=== PATIENT | male | born 1945 | race Caucasian/White ===

== ENCOUNTER 2017-01-12 18:44 | Inpatient (IN) | payer OTHER, BC ==
[~2017-01-12] VITALS: Ht 188 cm; Wt 90.9 kg
[~2017-01-12 18:44] MED LIST: ALLOPURINOL300 MG PO; AMBIEN10 MG PO; AMLODIPINE BESYL5 MG PO; ASCORBIC ACID500 MG PO; ASPIR 8181 M1 PO; ASPIR-LOW81 MG PO; ATORVASTATIN CA40 MG PO; AUGMENTIN875 MG PO; BUPROPION HCL150 M2 PO; CARVEDILOL12.5 MG PO; CARVEDILOL25 MG PO; CEFTAZIDIM2 GM/50 ML IV; CEPHALEXIN500 M1 PO; COLACE100 MG PO; COREG12.5 M1 PO; Carvedilol PO; DEXTROSE IV; DILAUDID2 MG PO; DOCUSATE SODIU100 MG PO; DULCOLAX10 MG PR; DUONEB 2.5-0.5 M3 ML AEROSOL; DURAGESIC75 MCG TD; FAMOTIDINE20 MG PO; FENTANYL1 EAC1 TD; FENTANYL1 EAC3 TD; FENTANYL1 EAC5 TD; FIBER TABS625 MG PO; FIBER THERAPY625 MG PO; FIBERCON625 MG PO; FLEET ENEMA-AD118 ML PR; FLOMAX0.4 MG PO; FLORASTOR250 MG PO; GLUCAGON1 MG IM; GLUCOSAMINE/1 TABLET PO; HEPARIN SO5000 UNITS SC; HUMALOG100 UNIT/1 SC; HYDROCODON-ACE1 EAC7 PO; IRON325 MG PO; LANTUS 10100 UNITS/ SC; LANTUS 3 M100 UNITS1 SC; LEVAQUIN500 MG PO; LEVEMIR FL100 UNIT/1 SC; LIDOCAINE700 MG TD; LIDODERM 5% P1 PATCH TD; LIPITOR20 MG PO; LIPITOR80 MG PO; LISINOPRIL10 MG PO; LISINOPRIL2.5 MG PO; LISINOPRIL40 MG PO; LYRICA300 MG PO; LYRICA75 MG PO; MILK OF MAGN PO; MIRALAX17 GM PO; MORPHINE SULFAT15 M1 PO; MORPHINE SULFAT15 MG PO; MULTIVITAMIN1 EAC2 PO; MYSOLINE50 MG PO; NORVASC5 MG PO; NOVOLOG PE100 UNITS/ SC; NOVOLOG100 UNIT/1 SC; PANTOPRAZOLE SO20 MG PO; PAROXETINE HCL10 MG PO; PENTASA500 MG PO; PEPCID AC20 MG PO; PEPCID20 MG PO; PERCOCET 10/1 TABLET PO; PLAVIX75 MG PO; PRIMIDONE50 MG PO; PRINIVIL5 MG PO; PROAMATINE5 MG PO; PROTONIX40 MG PO; ROCEPHIN1 GM/50 ML IV; SENNA-TIME S T1 EACH PO; SPIRONOLACTONE25 MG PO; Spironolactone PO; TAMSULOSIN HCL0.4 MG PO; THERAGRAN1 TABLET PO; TRAMADOL HCL50 MG PO; TYLENOL EXTRA500 MG PO; TYLENOL REGULA325 MG PO; VANCOMYCIN HCL1 GM IV; VANCOMYCIN IV; VANCOMYCIN1 GM/150 M IV; VIIBRYD40 MG PO; VITAMIN D400 UNIT PO; ZEASORB POWDE70.9 GM TP; ZESTRIL2.5 MG PO; ZOFRAN4 MG PO; ZOSYN 3.3753.375 GM IV; ZYLOPRIM300 MG PO
[2017-01-12] MEDS ORDERED: PAXIL20 MG PO (20:13)
[2017-01-12 20:14] LABS: EOSINOPHIL (%) 1.3 % (0-5); EOSINOPHIL COUNT 0.2 K/uL (0-0.3); HEMATOCRIT 36.2 % (38.0-50.0); IMMATURE GRANULOCYTE (%) 0.1 % (0.0-0.7); IMMATURE GRANULOCYTE COUNT 0.2 K/uL; LYMPHOCYTE COUNT 1.4 K/uL (1.0-2.8); MCH 27.4 PG (29.0-34.0); MCHC 33.1 G/DL (30.0-36.0); MCV 82.6 FL (86-99); MEAN PLAT.VOLUME 10.4 uM^3 (9.0-12.4); MONOCYTE (%) 6.8 % (3-12); MONOCYTE COUNT 0.9 K/uL (0-0.8); NEUTROPHIL (%) 81.2 % (45-76); NEUTROPHIL COUNT 10.9 K/uL (1.8-6.4); PLATELET COUNT 272 K/uL (156-360); RBC DIS.WIDTH-CV 14.1 % (11.8-14.6); RBC DIS.WIDTH-SD 40.9 % (39-53); RED BLOOD COUNT 4.38 M/uL (4.00-5.50); WHITE BLOOD COUNT 13.4 K/uL (4.1-10.2)
[2017-01-12] MEDS ORDERED: CLOTRIMAZOLE15 GM TP (20:14)
[2017-01-12] MEDS ORDERED: ZOFRAN ODT8 MG PO (20:18)
[2017-01-12] MEDS ORDERED: DILAUDID2 MG PO ×2 (20:18→20:19)
[2017-01-12] MEDS ORDERED: AMBIEN5 MG PO (20:19)
[2017-01-12] MEDS ORDERED: CATAPRES0.2 MG PO (20:20)
[2017-01-12] MEDS ORDERED: ACETAMINOPHEN325 M3 PO (20:21)
[2017-01-12] MEDS ORDERED: MIRALAX255 GM PO (20:25)
[2017-01-12] MEDS ORDERED: COLACE CLEAR50 MG PO (20:26)
[2017-01-12 20:27] LABS: CHLORIDE 104 mEq/L (99-109); POTASSIUM 4.7 mEq/L (3.7-5.4); SODIUM 137 mEq/L (136-147)
[2017-01-12] MEDS ORDERED: ARTIFICIAL TEAR15 M6 BOTH EYES ×2 (20:27→20:29)
[2017-01-12 20:29] LABS: GLUCOSE 133 mg/dL (70-99)
[2017-01-12] MEDS ORDERED: REMERON30 M2 PO (20:29)
[2017-01-12] MEDS ORDERED: FIBER TABS625 MG PO (20:29)
[2017-01-12 20:30] LABS: ANION GAP 9 MEQ/L (2-14)
[2017-01-12] MEDS ORDERED: LANTUS 10100 UNITS/ SC (20:30)
[2017-01-12 20:31] LABS: TOTAL BILIRUBIN 0.6 mg/dL (0.0-1.0)
[2017-01-12 20:32] LABS: ALKALINE PHOSPHATASE 295 IU/L (3-129)
[2017-01-12] MEDS ORDERED: NOVOLOG PE100 UNITS/ SC (20:32)
[2017-01-12 20:33] LABS: GFR ESTIMATE (CALCULATED) > 59 mL/min/
[2017-01-12 20:34] LABS: UREA NITROGEN (BUN) 31 mg/dL (9-23)
[2017-01-12 21:48] LABS: ADD MIUA? YES; BILIRUBIN NEGATIVE; BLOOD NEGATIVE; COLOR YELLOW ((YELLOW)); GLUCOSE (STRIP) NEGATIVE; KETONES 20; LEUKOCYTES NEGATIVE; NITRITE NEGATIVE; PROTEIN (STRIP) NEGATIVE; SPECIFIC GRAVITY 1.027 (1.000-1.030); UROBILINOGEN 0.2 MG/DL (0.2-1.0)
[2017-01-12 21:55] LABS: BACTERIA NONE SEEN /HPF; EPITHELIAL CELLS RARE /HPF; MUCUS TRACE /LPF; RED BLOOD CELLS 0-5 /HPF (0-5); UCUL ADDED? NO; WHITE BLOOD CELLS 0-5 /HPF (0-5)
[2017-01-13 00:38] VITALS: BP 189/86
[2017-01-13 01:57] LABS: INTERNAL CONTROL VALID? YES
[2017-01-13 02:11] LABS: C DIFF TOXIN NEGATIVE (NEGATIVE)
[2017-01-13 02:13] LABS: PROBE CHECK PASS; SPECIMEN PROCESSING CONTROL PASS
[2017-01-13 02:19] LABS: METH RESISTANT S AUREUS PCR POSITIVE (NEGATIVE)
[2017-01-13 02:24] LABS: PROBE CHECK PASS
[2017-01-13 02:37] LABS: C-REACTIVE PROTEIN 41.5 MG/L (0-10)
[2017-01-13 05:16] VITALS: BP 181/78
[2017-01-13 06:45] LABS: HEMATOCRIT 33.8 % (38.0-50.0); MCV 83.7 FL (86-99)
[2017-01-13 06:46] LABS: EOSINOPHIL (%) 0.7 % (0-5); EOSINOPHIL COUNT 0.1 K/uL (0-0.3); HEMATOCRIT 35.2 % (38.0-50.0); IMMATURE GRANULOCYTE (%) 0.3 % (0.0-0.7); LYMPHOCYTE COUNT 1.2 K/uL (1.0-2.8); MCHC 32.4 G/DL (30.0-36.0); MCV 83.4 FL (86-99); MEAN PLAT.VOLUME 10.4 uM^3 (9.0-12.4); MONOCYTE (%) 8.7 % (3-12); MONOCYTE COUNT 1.1 K/uL (0-0.8); NEUTROPHIL (%) 80.5 % (45-76); NEUTROPHIL COUNT 10.4 K/uL (1.8-6.4); PLATELET COUNT 212 K/uL (156-360); RBC DIS.WIDTH-CV 14.3 % (11.8-14.6); RBC DIS.WIDTH-SD 43.2 % (39-53); RED BLOOD COUNT 4.22 M/uL (4.00-5.50); WHITE BLOOD COUNT 12.9 K/uL (4.1-10.2)
[2017-01-13 07:13] LABS: ANION GAP 9 MEQ/L (2-14); CHLORIDE 103 MEQ/L (99-109); POTASSIUM 4.2 MEQ/L (3.7-5.4); SAMPLE HEMOLYSIS CHECK 0; SAMPLE ICTERIC CHECK 0; SAMPLE LIPEMIA CHECK 0; SODIUM 137 MEQ/L (136-147)
[2017-01-13 07:19] LABS: GFR ESTIMATE (CALCULATED) > 59 mL/min/; GLUCOSE 188 mg/dL (70-99); UREA NITROGEN (BUN) 26 mg/dL (9-23)
[2017-01-13 11:46] LABS: HEMATOCRIT 36.3 % (38.0-50.0); MCV 83.3 FL (86-99)
[2017-01-13 12:31] VITALS: BP 164/70
[2017-01-13 15:42] VITALS: BP 160/64
[2017-01-13 17:05] LABS: HEMATOCRIT 35.5 % (38.0-50.0); MCV 83.5 FL (86-99)
[2017-01-13 20:00] VITALS: BP 145/80
[2017-01-13 23:35] LABS: HEMATOCRIT 37.1 % (38.0-50.0); MCV 81.7 FL (86-99)
[2017-01-14] VITALS: BP 139/79
[2017-01-14 03:52] VITALS: BP 164/72
[2017-01-14 07:36] VITALS: BP 168/92
[2017-01-14 10:36] LABS: HEMATOCRIT 34.8 % (38.0-50.0); MCH 26.4 PG (29.0-34.0); MCHC 31.9 G/DL (30.0-36.0); MCV 82.9 FL (86-99); MEAN PLAT.VOLUME 10.5 uM^3 (9.0-12.4); PLATELET COUNT 216 K/uL (156-360); RBC DIS.WIDTH-CV 14.3 % (11.8-14.6); RBC DIS.WIDTH-SD 43.1 % (39-53); WHITE BLOOD COUNT 13.6 K/uL (4.1-10.2)
[2017-01-14 11:00] LABS: ANION GAP 7 MEQ/L (2-14); CHLORIDE 106 MEQ/L (99-109); GFR ESTIMATE (CALCULATED) > 59 mL/min/; GLUCOSE 196 mg/dL (70-99); POTASSIUM 3.9 MEQ/L (3.7-5.4); SAMPLE HEMOLYSIS CHECK 0; SAMPLE ICTERIC CHECK 0; SAMPLE LIPEMIA CHECK 0; SODIUM 139 MEQ/L (136-147); UREA NITROGEN (BUN) 22 mg/dL (9-23)
[2017-01-14 11:08] VITALS: BP 158/86
[2017-01-14 15:45] VITALS: BP 157/82
[2017-01-14 20:42] VITALS: BP 134/80
[2017-01-15] VITALS (7 sets, daily range): BP systolic 112–169; BP diastolic 56–74
[2017-01-15 09:04] LABS: ANION GAP 7 MEQ/L (2-14); CHLORIDE 108 MEQ/L (99-109); GFR ESTIMATE (CALCULATED) > 59 mL/min/; GLUCOSE 134 mg/dL (70-99); POTASSIUM 3.7 MEQ/L (3.7-5.4); SAMPLE HEMOLYSIS CHECK 0; SAMPLE ICTERIC CHECK 0; SAMPLE LIPEMIA CHECK 0; SODIUM 141 MEQ/L (136-147); UREA NITROGEN (BUN) 14 mg/dL (9-23)
[2017-01-15 09:13] LABS: HEMATOCRIT 33.7 % (38.0-50.0); MCH 27.4 PG (29.0-34.0); MCHC 32.6 G/DL (30.0-36.0); MEAN PLAT.VOLUME 10.7 uM^3 (9.0-12.4); PLATELET COUNT 178 K/uL (156-360); RBC DIS.WIDTH-CV 14.1 % (11.8-14.6); RBC DIS.WIDTH-SD 43.2 % (39-53); RED BLOOD COUNT 4.01 M/uL (4.00-5.50)
[2017-01-15 09:27] LABS: WHITE BLOOD COUNT 8.4 K/uL (4.1-10.2)
[2017-01-16 04:29] VITALS: BP 160/65
[2017-01-16 08:36] VITALS: BP 148/72
[2017-01-16 12:39] VITALS: BP 110/50
[2017-01-16] MEDS ORDERED: METRONIDAZOLE500 MG PO (14:24)
== END 2017-01-16 15:51 | disposition home or self-care (01) | DRG 378 ==
LOC: EME → EDBD 18:44 → 5WEST 23:02 → EDOF 23:02 → 5WEST 01-13 00:13 → 5SOUTH 01-13 10:44 → 5WEST 01-13 10:44 → 5SOUTH 01-13 10:44
PROVIDERS: Emergency Medicine; Hospitalist; Nurse Practitioner Family
DX: K62.5 Hemorrhage of anus and rectum (principal); A09 Infectious gastroenteritis and colitis, unspecified; I48.0 Paroxysmal atrial fibrillation; G47.33 Obstructive sleep apnea (adult) (pediatric); I11.9 Hypertensive heart disease without heart failure; I25.10 Atherosclerotic heart disease of native coronary artery without angina pectoris; Z95.5 Presence of coronary angioplasty implant and graft; Z79.4 Long term (current) use of insulin; E78.5 Hyperlipidemia, unspecified; Z95.0 Presence of cardiac pacemaker; I25.2 Old myocardial infarction; G89.29 Other chronic pain; M54.9 Dorsalgia, unspecified; E11.42 Type 2 diabetes mellitus with diabetic polyneuropathy; M10.9 Gout, unspecified; R29.6 Repeated falls; Z87.891 Personal history of nicotine dependence; K57.90 Diverticulosis of intestine, part unspecified, without perforation or abscess without bleeding; I73.9 Peripheral vascular disease, unspecified; Z22.322 Carrier or suspected carrier of Methicillin resistant Staphylococcus aureus
CPT/HCPCS: 74177; 80048; 80053; 81003; 82272; 83605; 85014; 85018; 85025; 85027; 86140; 86850; 86900; 86901; 87040; 87177; 87493; 87641; 94799; 99281; 99285; C9113; G0378; J0500; J0744; J1170; J2270; J2405; J7030; Q0169; S0030